=== PATIENT | male | born 1990 | race Two or more races ===

== ENCOUNTER → 2021-07-12 | Outpatient (CLI) | payer BC | LOC: M RAD 13:19 | DX: M50.222 Other cervical disc displacement at C5-C6 level (principal); M48.02 Spinal stenosis, cervical region ==

== ENCOUNTER 2022-01-13 01:57 | Emergency (ER) | payer BC ==
[~2022-01-13] VITALS: Ht 175.3 cm; Wt 84.1 kg
[2022-01-13 07:25] LABS: BASO # 0.1 10^3/uL (0.0-0.2); BASO % 0.5 % (0.0-1.0); EOS # 0.1 10^3/uL (0.0-0.5); EOS % 0.6 % (0.0-3.0); HEMATOCRIT 51.4 % (42.0-52.0); LYMPH # 1.8 10^3/uL (1.5-5.0); MEAN CORPUSCULAR HEMOGLOBIN 31.5 pg (27.0-33.0); MONO # 1.1 10^3/uL (0.0-0.8); MONO % 10.4 % (2.0-8.0); NEUTROPHILS # 7.9 10^3/uL (1.5-8.5); NEUTROPHILS % 72.1 % (36.0-66.0); PLATELET COUNT, AUTOMATED 215 10^3/uL (150-450); RED BLOOD COUNT 5.71 10^6/uL (4.30-6.10)
[2022-01-13] MEDS ORDERED: MORPHINE 2 MG/ML 1ML VIAL IV ONE (07:40)
[2022-01-13] MEDS ORDERED: ONDANSETRON 4MG 2ML VIAL IV ONE (07:40)
[2022-01-13] MEDS ORDERED: NS 1,000 ML IV ONE (07:40)
[2022-01-13 07:57] LABS: ALBUMIN 4.4 GM/DL (3.2-5.2); ALT/SGPT 216 U/L (12-78); BILIRUBIN,DIRECT 0.1 MG/DL (0.0-0.2); BILIRUBIN,TOTAL 0.4 MG/DL (0.2-1.0); BLOOD UREA NITROGEN 15 MG/DL (7-18); CALCIUM LEVEL 9.5 MG/DL (8.5-10.1); CARBON DIOXIDE LEVEL 29 MEQ/L (21-32); CHLORIDE LEVEL 102 MEQ/L (98-107); CREATININE FOR GFR 1.37 MG/DL (0.70-1.30); GLOMERULAR FILTRATION RATE > 60.0 (>60); GLUCOSE, FASTING 96 MG/DL (70-100); LIPASE 142 U/L (73-393); POTASSIUM SERUM 4.1 MEQ/L (3.5-5.1); SODIUM LEVEL 142 MEQ/L (136-145); TOTAL PROTEIN 8.3 GM/DL (6.4-8.2)
[2022-01-13] MEDS ORDERED: KETOROLAC 30 MG/ML 1ML VIAL IV ONE (08:50)
[2022-01-13 09:27] VITALS: BP 119/68
== END 2022-01-13 09:42 | disposition home or self-care (01) ==
LOC: M ED 01:57
DX: R10.11 Right upper quadrant pain (principal); R10.12 Left upper quadrant pain; K21.9 Gastro-esophageal reflux disease without esophagitis; F17.200 Nicotine dependence, unspecified, uncomplicated; F10.10 Alcohol abuse, uncomplicated; Z88.0 Allergy status to penicillin
CPT/HCPCS: 74018; 76705; 80048; 80076; 83690; 85025; 96361; 96374; 96375; 99284; J1885; J2270; J2405

== ENCOUNTER 2022-09-03 14:28 | Emergency (ER) | payer BC ==
[~2022-09-03] VITALS: Ht 175.3 cm; Wt 94.6 kg
[2022-09-03 14:31] VITALS: BP 162/71
[2022-09-03] MEDS ORDERED: LIDOCAINE 5% (LIDODERM) PATCH TD ONE (15:05)
[2022-09-03] MEDS ORDERED: ACETAMINOPHEN 500 MG TAB PO ONE (15:05)
[2022-09-03] MEDS ORDERED: diazePAM 10MG/2ML SYRINGE IV ONE (15:05)
[2022-09-03] MEDS ORDERED: KETOROLAC 30 MG/ML 1ML VIAL IV ONE (15:05)
[2022-09-03] MEDS ORDERED: NAPR-837 PO (15:10)
[2022-09-03] MEDS ORDERED: MEDR4PAK PO (15:11)
[2022-09-03] MEDS ORDERED: CYCL-707 PO (15:11)
== END 2022-09-03 16:44 | disposition home or self-care (01) ==
LOC: M ED 14:28
DX: M54.50 Low back pain, unspecified (principal); Y93.B3 Activity, free weights; Z88.0 Allergy status to penicillin; Z79.1 Long term (current) use of non-steroidal anti-inflammatories (NSAID); Z79.891 Long term (current) use of opiate analgesic; Z79.899 Other long term (current) drug therapy
CPT/HCPCS: 96374; 99283; J1885; J3360